=== PATIENT | male | born 1950 | race Caucasian/White ===

== ENCOUNTER 2020-02-22 11:41 | Outpatient (CLI) | payer MEDICARE ==
--- NOTE | 2020-02-22 21:02 | RAD ---
LEFT HUMERUS TWO VIEWS: 02/22/20 No fracture or periosteal reaction of concern was seen. The humerus appears intact. IMPRESSION: No acute finding. POS: HOME
--- NOTE | 2020-02-22 21:53 | RAD ---
LEFT SHOULDER THREE VIEWS: 02/22/20 No fracture or dislocation was seen. The AC joint is not widened. The adjacent ribs appear intact. IMPRESSION: No acute finding. POS: HOME
== END 2020-02-22 11:42 | disposition home or self-care (01) ==
LOC: BURRAD 11:41
PROVIDERS: ATTEND Family Medicine
DX: M79.622 Pain in left upper arm (principal); M25.512 Pain in left shoulder